=== PATIENT | male | born 1970 | race African-American/Black ===

== ENCOUNTER 2017-07-26 11:36 | Emergency (ER) | payer MEDICAID ==
[~2017-07-26] VITALS: Ht 188 cm; Wt 145.0 kg
[~2017-07-26 11:36] MED LIST: AMOXICILLIN500 MG PO; AUGMENTIN875TAB PO; BACTRIM DS1 TAB PO; CEPHALEXIN500 MG PO; EQ ASPIRIN325 M1 PO; FIORICET PO; FLEXERIL PO; HYDROCHLORO25 MG/TAB PO; KETOROLAC10 MG PO; LIPITOR80 M1 PO; LISINOPRIL10 MG PO; LISINOPRIL20 MG PO; LOPRESSOR25 M1 PO; LORTAB 10 PO; LORTAB 10-325 M1 TAB PO; LOVASTATIN20 M1 PO; LOVASTATIN20 MG PO; MULTI VIT PO; NAPROSYN500 MG PO; NEXIUM20 MG PO; NEXIUM40 M1 PO; NITROSTAT0.4 MG SL; NORCO1 TA1 PO; NORTRIPTYLIN25 MG PO; OMEPRAZOLE20 M2 PO; RANITIDINE300 M1 PO; SUMATRIPTAN SU100 MG PO; TORADOL OR; TRAMADOL HCL50 MG PO; TRAZODONE50 MG PO; ULTRAM50 M1 PO; [UNRECOGNIZED DRUG - REMARK]
[2017-07-26] MEDS ORDERED: MOTRIN800 MG PO (12:26)
[2017-07-26 12:35] VITALS: BP 166/93
== END 2017-07-26 12:45 | DRG 563 ==
LOC: ED 11:36
PROC: 2W3EX1Z Immobilization of Right Hand using Splint (ICD-10-PCS; principal; 2017-07-26)
DX: S62.314A Displaced fracture of base of fourth metacarpal bone, right hand, initial encounter for closed fracture (principal); X58.XXXA Exposure to other specified factors, initial encounter; Y93.89 Activity, other specified; Y92.89 Other specified places as the place of occurrence of the external cause

== ENCOUNTER 2017-10-01 11:16 | Emergency (ER) | payer MEDICAID ==
[~2017-10-01] VITALS: Ht 188 cm; Wt 150.0 kg
[~2017-10-01 11:16] MED LIST changes: +MOTRIN800 MG PO
[2017-10-01 12:01] LABS: HEMATOCRIT 48.9 % (39.0-50.0); HEMOGLOBIN 16.7 g/dl (14.0-18.0); IMMATURE GRANULOCYTES 0.4 % (0.0-1.0); MEAN CELL VOLUME 85.5 fL CALC (80.0-100.0); MEAN CORPUSCULAR HGB 29.2 pG CALC (26.0-32.0); MEAN CORPUSCULAR HGB CONC 34.2 g/L CALC (32.0-36.0); NEUT# 4.12 thou/uL (1.82-7.42); RED BLOOD COUNT 5.72 mill/uL (4.70-6.10); RED CELL DISTRI WIDTH 13.2 % (11.5-15.5)
[2017-10-01 12:18] LABS: ANION GAP 16 (6-22 (CALC)); BUN 8 mg/dL (9-20); BUN/CREATININE RATIO 9 (12-20 (CALC)); CARBON DIOXIDE 23 mmol/l (22-30); CHLORIDE 110 mmol/l (95-108); GFR > 60 ML/MIN (>=60 (CALC)); GFR FOR AFR.AMER. > 60 ML/MIN (>=60 (CALC)); POTASSIUM 3.7 mmol/l (3.5-5.1); SODIUM 145 mmol/l (137-146)
[2017-10-01] MEDS ORDERED: MOTRIN400 MG PO (12:42)
[2017-10-01 12:54] VITALS: BP 159/96
== END 2017-10-01 12:56 | disposition home or self-care (01) | DRG 103 ==
LOC: ED 11:16
PROVIDERS: Family Medicine
DX: R51 Headache (principal); F17.200 Nicotine dependence, unspecified, uncomplicated; I10 Essential (primary) hypertension; R42 Dizziness and giddiness; I25.2 Old myocardial infarction

== ENCOUNTER 2017-10-06 18:03 | Emergency (ER) | payer MEDICAID ==
[~2017-10-06] VITALS: Ht 188 cm; Wt 142.4 kg
[~2017-10-06 18:03] MED LIST changes: +MOTRIN400 MG PO
[2017-10-06] MEDS ORDERED: METOPROL TAR25 MG PO (18:19)
[2017-10-06 18:53] VITALS: BP 144/85
== END 2017-10-06 18:55 | disposition home or self-care (01) | DRG 305 ==
LOC: ED 18:03
DX: I10 Essential (primary) hypertension (principal)

== ENCOUNTER 2018-12-15 18:13 | Observation (INO) | payer OTHER ==
[~2018-12-15] VITALS: Ht 188 cm; Wt 144.0 kg
[~2018-12-15 18:13] MED LIST changes: +METOPROL TAR25 MG PO
[2018-12-15] MEDS ORDERED: ASPIRIN LOW DOS81 M3 PO (18:31)
[2018-12-15] MEDS ORDERED: PRILOSEC20 MG PO (18:32)
[2018-12-15 18:59] LABS: HEMATOCRIT 51.4 % (39.0-50.0); HEMOGLOBIN 16.9 g/dl (14.0-18.0); IMMATURE GRANULOCYTES 0.2 % (0.0-5.0); MEAN CELL VOLUME 87.4 fL CALC (80.0-100.0); MEAN CORPUSCULAR HGB 28.7 pG CALC (26.0-32.0); MEAN CORPUSCULAR HGB CONC 32.9 g/L CALC (32.0-36.0); NEUT# 4.66 thou/uL (1.82-7.42); RED BLOOD COUNT 5.88 mill/uL (4.70-6.10); RED CELL DISTRI WIDTH 13.1 % (11.5-15.5)
[2018-12-15 19:13] LABS: ALBUMIN 4.3 g/dL (3.2-5.0); ANION GAP 13 (6-22 (CALC)); BILIRUBIN, TOTAL 1.2 mg/dL (0.0-1.4); BUN 11 mg/dL (9-20); BUN/CREATININE RATIO 11 (12-20 (CALC)); CARBON DIOXIDE 26 mmol/l (22-30); CHLORIDE 105 mmol/l (95-108); GFR > 60 ML/MIN (>=60 (CALC)); GFR FOR AFR.AMER. > 60 ML/MIN (>=60 (CALC)); LIPASE 190 u/l (23-300); POTASSIUM 3.7 mmol/l (3.5-5.1); SGOT/AST 36 u/l (17-59); SODIUM 141 mmol/l (137-146)
[2018-12-15 19:15] LABS: ALKALINE PHOSPHATASE 124 u/l (38-126)
[2018-12-15 19:19] LABS: PROTHROMBIN TIME 10.7 SECONDS (9.0-12.5)
[2018-12-15 22:18] VITALS: BP 155/85
[2018-12-16] VITALS: BP 131/81
[2018-12-16 04:00] VITALS: BP 122/85
[2018-12-16 08:35] VITALS: BP 138/84
[2018-12-16 11:30] VITALS: BP 144/96
== END 2018-12-16 15:20 | disposition home or self-care (01) ==
LOC: ED 18:13 → ED-I 20:12 → ED 20:25 → MS2 20:26
PROVIDERS: Emergency Medicine; ADMIT Internal Medicine; ATTEND Internal Medicine
DX: R07.89 Other chest pain (principal); I49.9 Cardiac arrhythmia, unspecified; I10 Essential (primary) hypertension; E78.5 Hyperlipidemia, unspecified; K21.9 Gastro-esophageal reflux disease without esophagitis; G47.33 Obstructive sleep apnea (adult) (pediatric); F17.290 Nicotine dependence, other tobacco product, uncomplicated; Z72.89 Other problems related to lifestyle; I25.2 Old myocardial infarction; G43.909 Migraine, unspecified, not intractable, without status migrainosus
CPT/HCPCS: G0378

== ENCOUNTER 2019-07-28 08:27 | Emergency (ER) | payer SELFPAY ==
[~2019-07-28] VITALS: Ht 188 cm; Wt 150.0 kg
[~2019-07-28 08:27] MED LIST changes: +ASPIRIN LOW DOS81 M3 PO; +PRILOSEC20 MG PO
[2019-07-28] MEDS ORDERED: AUGMENTIN500TAB PO (09:24)
[2019-07-28] MEDS ORDERED: CODEINE/GUAIFEN1 SOL PO (09:24)
[2019-07-28 09:58] VITALS: BP 116/82
== END 2019-07-28 09:59 | disposition home or self-care (01) | DRG 203 ==
LOC: ED 08:27
DX: J40 Bronchitis, not specified as acute or chronic (principal); R05 Cough; J01.90 Acute sinusitis, unspecified

== ENCOUNTER 2019-09-07 | Emergency (ER) | payer MEDICAID ==
[~2019-09-07] MED LIST changes: +AUGMENTIN500TAB PO; +CODEINE/GUAIFEN1 SOL PO
[2019-09-07] MEDS ORDERED: KEFLEX500 M1 PO (13:14)
[2019-09-07] MEDS ORDERED: BACTROBAN TOP (13:14)
== END 2019-09-07 13:55 | disposition home or self-care (01) ==
DX: S51.831A Puncture wound without foreign body of right forearm, initial encounter (principal); I10 Essential (primary) hypertension; I25.2 Old myocardial infarction; B95.61 Methicillin susceptible Staphylococcus aureus infection as the cause of diseases classified elsewhere; W25.XXXA Contact with sharp glass, initial encounter; Y93.89 Activity, other specified; Y92.009 Unspecified place in unspecified non-institutional (private) residence as the place of occurrence of the external cause

== ENCOUNTER 2019-11-05 | Emergency (ER) | payer MEDICAID ==
[~2019-11-05] MED LIST changes: +BACTROBAN TOP; +KEFLEX500 M1 PO
[2019-11-05 18:16] LABS: HEMATOCRIT 45.6 % (39.0-50.0); IMMATURE GRANULOCYTES 0.6 % (0.0-5.0); MEAN CELL VOLUME 86.4 fL CALC (80.0-100.0); MEAN CORPUSCULAR HGB 28.4 pG CALC (26.0-32.0); MEAN CORPUSCULAR HGB CONC 32.9 g/L CALC (32.0-36.0); NEUT# 4.46 thou/uL (1.82-7.42); RED BLOOD COUNT 5.28 mill/uL (4.70-6.10); RED CELL DISTRI WIDTH 13.4 % (11.5-15.5)
[2019-11-05 18:29] LABS: ANION GAP 10 (6-22 (CALC)); BUN 12 mg/dL (9-20); BUN/CREATININE RATIO 10 (12-20 (CALC)); CARBON DIOXIDE 25 mmol/l (22-30); CHLORIDE 107 mmol/l (95-108); CREATININE 1.1 mg/dL (0.7-1.3); GFR > 60 ML/MIN (>=60 (CALC)); GFR FOR AFR.AMER. > 60 ML/MIN (>=60 (CALC)); SODIUM 138 mmol/l (137-146)
== END 2019-11-05 19:38 | disposition left against medical advice (07) | DRG 313 ==
PROVIDERS: Family Medicine
DX: R07.9 Chest pain, unspecified (principal); I10 Essential (primary) hypertension; I25.10 Atherosclerotic heart disease of native coronary artery without angina pectoris; I25.2 Old myocardial infarction; Z91.19 Patient's noncompliance with other medical treatment and regimen

== ENCOUNTER 2024-05-13 07:51 | Emergency (ER) | payer SELFPAY ==
[~2024-05-13] VITALS: Ht 188 cm; Wt 99.7 kg
[2024-05-13 07:56] VITALS: BP 134/100
[2024-05-13 08:00] VITALS: BP 139/96
[2024-05-13] MEDS ORDERED: KETOROLAC TROMETHAMINE 30 MG/ML SDV IM ONE (08:20)
[2024-05-13] MEDS ORDERED: METHOCARBAMOL 500 MG/TAB PO ONE (08:20)
[2024-05-13] MEDS ORDERED: FLEXERIL5 M1 PO (08:21)
[2024-05-13] MEDS ORDERED: NAPROXEN500 MG PO (08:21)
[2024-05-13] MEDS ORDERED: PREDNISONE50 MG PO (08:21)
[2024-05-13 08:58] VITALS: BP 139/96
== END 2024-05-13 08:56 | disposition home or self-care (01) | DRG 552 ==
LOC: ED 07:51
DX: M54.41 Lumbago with sciatica, right side (principal); E66.9 Obesity, unspecified; I10 Essential (primary) hypertension; K21.9 Gastro-esophageal reflux disease without esophagitis; E78.5 Hyperlipidemia, unspecified; I25.2 Old myocardial infarction; G47.30 Sleep apnea, unspecified; Z72.0 Tobacco use